=== PATIENT | female | born 1990 | race Two or more races ===

== ENCOUNTER → 2019-06-11 | Outpatient (CLI) | payer OTHER | END | disposition home or self-care (01) | LOC: PRENATAL 08:00 | DX: O26.891 Other specified pregnancy related conditions, first trimester (principal); O36.80X1 Pregnancy with inconclusive fetal viability, fetus 1 ==

== ENCOUNTER 2020-07-25 08:44 | Inpatient (IN) | payer OTHER ==
[~2020-07-25] VITALS: Ht 154.9 cm; Wt 70.8 kg
== END 2020-07-28 17:22 | disposition home or self-care (01) | DRG 807 ==
LOC: LDR 08:44 → SURG-SUITE 08:44 → LDR 10:56 → SURG-SUITE 12:46
PROVIDERS: ADMIT Obstetrics & Gynecology; ATTEND Obstetrics & Gynecology
PROC: 10E0XZZ Delivery of Products of Conception, External Approach (ICD-10-PCS; principal; 2020-07-25)
PROC: 4A1HXFZ Monitoring of Products of Conception, Cardiac Rhythm, External Approach (ICD-10-PCS; 2020-07-25)
DX: O42.013 Preterm premature rupture of membranes, onset of labor within 24 hours of rupture, third trimester (principal); Z37.0 Single live birth; Z3A.34 34 weeks gestation of pregnancy; Z20.828 Contact with and (suspected) exposure to other viral communicable diseases

== ENCOUNTER 2024-11-10 09:24 | Outpatient (CLI) | payer OTHER | END 2024-11-10 10:35 | disposition home or self-care (01) | LOC: NST 09:24 | PROVIDERS: ATTEND Obstetrics & Gynecology Maternal & Fetal Medicine | DX: Z34.83 Encounter for supervision of other normal pregnancy, third trimester (principal) ==

== ENCOUNTER 2024-12-03 10:41 | Outpatient (CLI) | payer OTHER | END 2024-12-03 11:27 | disposition home or self-care (01) | LOC: NST 10:41 | PROVIDERS: ATTEND Obstetrics & Gynecology Maternal & Fetal Medicine | DX: Z34.83 Encounter for supervision of other normal pregnancy, third trimester (principal) ==

== ENCOUNTER 2024-12-18 08:22 | Outpatient (CLI) | payer OTHER | END 2024-12-18 09:13 | disposition home or self-care (01) | LOC: NST 08:22 | PROVIDERS: ATTEND Obstetrics & Gynecology Maternal & Fetal Medicine | DX: Z34.83 Encounter for supervision of other normal pregnancy, third trimester (principal) ==